=== PATIENT | female | born 1945 | race Caucasian/White ===

== ENCOUNTER 2020-06-11 16:02 | Inpatient (IN) | payer MEDICARE ==
[~2020-06-11] VITALS: Ht 165.1 cm; Wt 68.9 kg
[~2020-06-11 16:02] MED LIST: APIX5TAB3 PO; BUPR150T8 PO; HYDR12.5 PO; KRIL1CAP PO; METO-395 PO; MULT-38 PO; VENL75TA4 PO
[2020-06-11 18:00] VITALS: BP 117/53
--- NOTE | 2020-06-11 18:00 | NUR ---
Received report from SILVANA Spencer from [facility] ED at 1715. Patient arrived onto unit at 1730 via ambulance crew. patient not complaining of pain at this time. Placed on heater furnace. Vital signs read 133/58, 97%, 44hr, 19respirations. no pain. 2 rn skin check completed.
--- NOTE | 2020-06-11 18:20 | NUR ---
Problems reprioritized. Patient report given, questions answered & plan of care reviewed with SILVANA Lowe.
[2020-06-11 19:02] LABS: BASOPHILS # (AUTO) 0.1 X10'3 (0-0.2); BASOPHILS % (AUTO) 0.6 % (0-1); EOSINOPHILS # (AUTO) 0.1 X10'3 (0-0.9); EOSINOPHILS % (AUTO) 1.3 % (0-6); HEMATOCRIT 36.9 % (35.0-45.0); LYMPHOCYTES # (AUTO) 1.9 X10'3 (1.1-4.8); LYMPHOCYTES % (AUTO) 17.6 % (21-51); MEAN CORPUSCULAR HEMOGLOBIN 31.4 PG (27.0-31.0); MEAN CORPUSCULAR HGB CONC 32.7 g/dL (33.0-36.5); MEAN CORPUSCULAR VOLUME 96.1 FL (78-98); MEAN PLATELET VOLUME 7.5 FL (7.4-10.4); MONOCYTES # (AUTO) 1.1 X10'3 (0-0.9); MONOCYTES % (AUTO) 10.4 % (2-12); NEUTROPHILS # (AUTO) 7.7 X10'3 (1.8-7.7); NEUTROPHILS % (AUTO) 70.1 % (42-75); PLATELET COUNT 295 X10'3 (140-440); RED BLOOD COUNT 3.84 X10'6 (4.20-5.60); RED CELL DISTRIBUTION WIDTH 13.3 % (11.5-14.5)
[2020-06-11 19:20] LABS: ALANINE AMINOTRANSFERASE 69 U/L (12-78); ALBUMIN 2.9 G/DL (3.4-5.0); ALBUMIN/GLOBULIN RATIO 0.9 (1.1-1.5); ALKALINE PHOSPHATASE 285 IU/L (46-116); ANION GAP 10 (8-16); ASPARTATE AMINO TRANSFERASE 42 U/L (10-37); BILIRUBIN,TOTAL 0.6 MG/DL (0.1-1.0); BLOOD UREA NITROGEN 20 MG/DL (7-18); BUN/CREATININE RATIO 22.2 (6.6-38.0); CALCIUM 8.6 MG/DL (8.5-10.1); CHLORIDE 100 MMOL/L (99-107); GLUCOSE 81 MG/DL (70-104); POTASSIUM 4.3 MMOL/L (3.5-5.1); SODIUM 134 MMOL/L (135-145); TOTAL CARBON DIOXIDE 24.4 MMOL/L (24-32); eGFR 61 ML/MIN
[2020-06-11] MEDS ORDERED: VENL150C58 PO (19:25)
[2020-06-11] MEDS ORDERED: ASPI-611 PO (19:25)
[2020-06-11] MEDS ORDERED: SPIR25TA5 PO (19:25)
[2020-06-11] MEDS ORDERED: ATOR40TA72 PO (19:25)
[2020-06-11] MEDS ORDERED: BUPR150T6 PO (19:26)
--- NOTE | 2020-06-11 22:05 | NUR ---
PAGER ID: [phone] MESSAGE: [id number] Dora Jesusper: Med rec needs to be addressed. Thanks -Chrissy [phone] Addendum: 06/11/20 at 2220 by Chrissy Perez RN Person consumer insight manager for [facility] said he doesn't want her to get anything tonight and put all meds on hold. Only give the wellbutrin and venlafaxine that he scheduled for tomorrow.
--- NOTE | 2020-06-12 00:24 | NUR ---
Patient feels fatigued and prefers to sleep instead of Admission [facility]. Will pass on to handoff nurse. Addendum: 06/12/20 at 0556 by Chrissy Perez RN Able to finish DART at 0500.
[2020-06-12 02:00] VITALS: BP 112/54
[2020-06-12 06:00] VITALS: BP 100/73
[2020-06-12 06:07] LABS: BASOPHILS # (AUTO) 0.1 X10'3 (0-0.2); BASOPHILS % (AUTO) 0.7 % (0-1); EOSINOPHILS # (AUTO) 0.2 X10'3 (0-0.9); EOSINOPHILS % (AUTO) 1.7 % (0-6); HEMATOCRIT 36.2 % (35.0-45.0); HEMOGLOBIN 12.3 g/dl (12.0-16.0); LYMPHOCYTES # (AUTO) 2.1 X10'3 (1.1-4.8); LYMPHOCYTES % (AUTO) 20.5 % (21-51); MEAN CORPUSCULAR HEMOGLOBIN 32.7 PG (27.0-31.0); MEAN CORPUSCULAR HGB CONC 33.9 g/dL (33.0-36.5); MEAN CORPUSCULAR VOLUME 96.5 FL (78-98); MEAN PLATELET VOLUME 7.5 FL (7.4-10.4); MONOCYTES # (AUTO) 1.2 X10'3 (0-0.9); MONOCYTES % (AUTO) 11.2 % (2-12); NEUTROPHILS # (AUTO) 6.9 X10'3 (1.8-7.7); NEUTROPHILS % (AUTO) 65.9 % (42-75); PLATELET COUNT 300 X10'3 (140-440); RED BLOOD COUNT 3.75 X10'6 (4.20-5.60); WHITE BLOOD COUNT 10.5 X10'3 (4.5-11.0)
--- NOTE | 2020-06-12 06:14 | NUR ---
Problems reprioritized. Patient report given, questions answered & plan of care reviewed with SILVANA Heath.
[2020-06-12 06:15] LABS: CHLORIDE 102 MMOL/L (99-107)
--- NOTE | 2020-06-12 06:18 | NUR ---
Patient in room PCU 3027. I have received report from Chrissy PINA and had the opportunity to ask questions and assume patient care.
[2020-06-12 06:43] LABS: ALBUMIN 2.8 G/DL (3.4-5.0); ANION GAP 11 (8-16); BLOOD UREA NITROGEN 17 MG/DL (7-18); BUN/CREATININE RATIO 17.9 (6.6-38.0); CALCIUM 8.7 MG/DL (8.5-10.1); CREATININE 0.95 MG/DL (0.40-0.90); GLUCOSE 103 MG/DL (70-104); SODIUM 138 MMOL/L (135-145); TOTAL CARBON DIOXIDE 24.7 MMOL/L (24-32); eGFR 57 ML/MIN
[2020-06-12] MEDS ORDERED: venlafaxine XR 75mg capsule (Q24H) PO SCH (08:00)
[2020-06-12] MEDS ORDERED: buproprion 150mg XL (24-hour) tablet PO SCH (08:00)
[2020-06-12] MEDS ORDERED: buPROPion SR 150mg tablet PO SCH (08:00)
--- NOTE | 2020-06-12 10:08 | NUR ---
Spoke to Dr Yvonne Suh, pt is okay to discharge at this point because she is no longer in 3rd degree , will continue to monitor the patient closely. Addendum: 06/12/20 at 1026 by Yecenia Pablo RN Dr Yvonne Suh did not want to start the patient on any new medications and only wants her to take her Effexor and Wellbutrin
--- NOTE | 2020-06-12 10:09 | NUR ---
Took out patients Meade catheter.
--- NOTE | 2020-06-12 11:28 | NUR ---
Stable for discharge per MD order, all discharge instructions reviewed with patient and all questions answered, educated that if symptoms of heart block re-appeared to go to ER or call 911, patient educated to go to Dr Denson office this sunday, tele monitor and PIV discontinued, all belongings collected and sent with patient, left the unit in wheelchair with nurses aide to private vehicle.
== END 2020-06-12 11:30 | disposition home or self-care (01) | DRG 310 ==
LOC: PCU 3S 17:35
PROVIDERS: ADMIT Internal Medicine Interventional Cardiology; ATTEND Internal Medicine Interventional Cardiology
DX: I44.2 Atrioventricular block, complete (principal); E78.5 Hyperlipidemia, unspecified; I10 Essential (primary) hypertension; I48.20 Chronic atrial fibrillation, unspecified; I25.10 Atherosclerotic heart disease of native coronary artery without angina pectoris; I48.92 Unspecified atrial flutter; Z88.1 Allergy status to other antibiotic agents; Z79.899 Other long term (current) drug therapy
CPT/HCPCS: 36415; 80048; 80053; 85025; 85610; 87081; G0378

== ENCOUNTER 2021-04-27 14:09 | Outpatient (CLI) | payer MEDICARE ==
[~2021-04-27 14:09] MED LIST changes: -APIX5TAB3 PO; +BUPR-317 PO; -BUPR150T8 PO; -HYDR12.5 PO; -KRIL1CAP PO; -METO-395 PO; -MULT-38 PO; +VENL150C58 PO; -VENL75TA4 PO
== END 2021-04-27 23:59 | disposition home or self-care (01) ==
LOC: RT 14:09
PROVIDERS: ATTEND Internal Medicine
DX: R06.02 Shortness of breath (principal)
CPT/HCPCS: 94010; 94727; 94729

== ENCOUNTER 2021-06-09 11:26 | Day surgery (SDC) | payer MEDICARE ==
[~2021-06-09] VITALS: Ht 165.1 cm; Wt 72.9 kg
[2021-06-09] VITALS (15 sets, daily range): BP systolic 142–186; BP diastolic 49–84
[2021-06-09] MEDS ORDERED: normal saline 1000ml 1,000 ML IV PRN ×2 (11:50→11:55)
[2021-06-09] MEDS ORDERED: fentaNYL/PF 50MCG/1 ML 2ML syringe IV ONE (11:55)
[2021-06-09] MEDS ORDERED: MIDAZolam 1mg/ml 10ml vial IV ONE (11:55)
[2021-06-09] MEDS ORDERED: VENL75CA61 PO (12:17)
[2021-06-09] MEDS ORDERED: ATOR40TA72 PO (12:17)
[2021-06-09] MEDS ORDERED: APIX5TAB3 PO (12:17)
[2021-06-09] MEDS ORDERED: FLUO-1 PO (12:17)
[2021-06-09 12:22] LABS: BASOPHILS # (AUTO) 0.1 X10'3 (0-0.2); BASOPHILS % (AUTO) 1.2 % (0-1); EOSINOPHILS # (AUTO) 0.4 X10'3 (0-0.9); EOSINOPHILS % (AUTO) 5.9 % (0-6); HEMOGLOBIN 13.8 g/dl (12.0-16.0); LYMPHOCYTES # (AUTO) 1.1 X10'3 (1.1-4.8); LYMPHOCYTES % (AUTO) 15.1 % (21-51); MEAN CORPUSCULAR HEMOGLOBIN 31.1 PG (27.0-31.0); MEAN CORPUSCULAR HGB CONC 33.5 g/dL (33.0-36.5); MEAN CORPUSCULAR VOLUME 92.8 FL (78-98); MEAN PLATELET VOLUME 7.6 FL (7.4-10.4); MONOCYTES # (AUTO) 0.7 X10'3 (0-0.9); MONOCYTES % (AUTO) 9.5 % (2-12); NEUTROPHILS # (AUTO) 5.2 X10'3 (1.8-7.7); NEUTROPHILS % (AUTO) 68.3 % (42-75); PLATELET COUNT 303 X10'3 (140-440); RED BLOOD COUNT 4.42 X10'6 (4.20-5.60); RED CELL DISTRIBUTION WIDTH 13.9 % (11.5-14.5); WHITE BLOOD COUNT 7.6 X10'3 (4.5-11.0)
[2021-06-09] MEDS ORDERED: gelatin sponge, absorbable (Gelfoam 12-7MM) sponge TP ONE (14:54)
[2021-06-09] MEDS ORDERED: ondansetron/PF 4mg/2ml inj ONE (16:38)
[2021-06-09] MEDS ORDERED: ondansetron/PF 4mg/2ml inj IV ONE (16:40)
== END 2021-06-09 17:30 | disposition home or self-care (01) ==
LOC: SSTAY O 11:26
PROVIDERS: ATTEND Preventive Medicine Aerospace Medicine
DX: R94.5 Abnormal results of liver function studies (principal); Z79.899 Other long term (current) drug therapy; Z79.01 Long term (current) use of anticoagulants; Z88.1 Allergy status to other antibiotic agents
CPT/HCPCS: 36415; 47000; 76942; 85025; J2250; J2405; J3010; J7030